=== PATIENT | female | born 1975 | race Caucasian/White ===

== ENCOUNTER 2018-07-05 10:53 | Outpatient (CLI) | payer MEDICARE, MEDICAID, SELFPAY ==
--- NOTE | 2018-07-05 10:49 | DI.REPORT_ITS ---
SYMPTOM/DIAGNOSIS: F/U DEBRIDEMENT LEFT ELBOW: Two views. Comparison 05/26/18 There is now a nondisplaced longitudinally oriented fracture of the medial epicondyle. Post traumatic or post surgical changes are again seen at the proximal ulna. Secondary degenerative changes are seen at the elbow. Skin sam are present in the soft tissues medially. IMPRESSION: Nondisplaced fracture involving the medial epicondyle.
== END 2018-07-05 10:54 ==
PROVIDERS: PCP Internal Medicine; Visit Provider Orthopaedic Surgery
DX: S57 Crushing injury of elbow and forearm (principal); S52.045D Nondisplaced fracture of coronoid process of left ulna, subsequent encounter for closed fracture with routine healing; W23.0XXD Caught, crushed, jammed, or pinched between moving objects, subsequent encounter; M19.122 Post-traumatic osteoarthritis, left elbow
CPT/HCPCS: 73070

== ENCOUNTER 2018-07-26 10:07 | Outpatient (CLI) | payer MEDICARE, MEDICAID, SELFPAY ==
--- NOTE | 2018-07-26 10:05 | DI.REPORT_ITS ---
SYMPTOMS/DIAGNOSIS: INJURY POST SURGERY LEFT ELBOW: Three views. Comparison is 07/05/18. There is again seen a fracture involving the medial epicondyle. The fracture has shown increased displacement compared to the prior examination. There is now approximately 4 mm of displacement of the fracture since 07/05/18. 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 Degenerative changes are seen in the elbow. Soft tissue swelling is present in the medial elbow. IMPRESSION: Interval displacement of the fracture involving the medial epicondyle since 07/05/18.
== END 2018-07-26 10:08 ==
PROVIDERS: PCP Internal Medicine; Visit Provider Physician Assistant Surgical
DX: S57 Crushing injury of elbow and forearm (principal); S52.045D Nondisplaced fracture of coronoid process of left ulna, subsequent encounter for closed fracture with routine healing; M24.022 Loose body in left elbow; M77.8 Other enthesopathies, not elsewhere classified; W23.0XXD Caught, crushed, jammed, or pinched between moving objects, subsequent encounter
CPT/HCPCS: 73080

== ENCOUNTER → 2018-08-18 10:54 | Outpatient (BNVA) | payer MEDICARE, MEDICAID, SELFPAY | PROVIDERS: Visit Provider Orthopaedic Surgery | DX: S57 Crushing injury of elbow and forearm (principal); S52.045D Nondisplaced fracture of coronoid process of left ulna, subsequent encounter for closed fracture with routine healing; M24.022 Loose body in left elbow; W23.0XXD Caught, crushed, jammed, or pinched between moving objects, subsequent encounter ==

== ENCOUNTER 2018-08-19 13:57 | Outpatient (CLI) | payer MEDICARE, MEDICAID, SELFPAY ==
--- NOTE | 2018-08-18 11:05 | DI.RAD_ITS ---
SYMPTOMS/DIAGNOSIS: F/U OSTEOTOMY OF MEDIAL HUMERAL EPICONDYLE LEFT ELBOW: Comparison is made with the previous study of 07/26/18 and again noted is a displaced fracture of the medial epicondyle and degenerative changes involving the ulnar trochlear joint. No interval change is apparent.
== END 2018-08-19 14:17 ==
PROVIDERS: PCP Internal Medicine; Visit Provider Orthopaedic Surgery
DX: S52.045D Nondisplaced fracture of coronoid process of left ulna, subsequent encounter for closed fracture with routine healing (principal)
CPT/HCPCS: 73080

== ENCOUNTER 2018-09-29 10:12 | Outpatient (CLI) | payer MEDICARE, MEDICAID, SELFPAY ==
--- NOTE | 2018-09-29 09:22 | DI.RAD_ITS ---
SYMPTOM/DIAGNOSIS: FU NON UNION LEFT ELBOW: When compared with the previous study of 08/18 and 07/26/18, again noted are the post traumatic changes involving the medial epicondyle of the distal humerus and coronoid process of the ulna consistent with old trauma. There is evident non union. There are at least two fracture fragments involving the lateral epicondyle. When compared with the 07/26 and 08/18/18 examinations, there has been no significant interval change.
== END 2018-09-29 10:32 ==
PROVIDERS: PCP Internal Medicine; Visit Provider Orthopaedic Surgery
DX: S52.04 Fracture of coronoid process of ulna (principal); X58.XXXD Exposure to other specified factors, subsequent encounter
CPT/HCPCS: 99211; 99213; 73070

== ENCOUNTER 2018-10-06 12:55 | Outpatient (CLI) | payer MEDICARE, MEDICAID, SELFPAY ==
--- NOTE | 2018-10-06 13:15 | HPE_ITS ---
Assessment and Plan (1) History of elbow surgery: Current visit: Yes Status: Acute Plan: Discussed surgery including surgical technique, pertinent anatomy, recovery, benefits and risks including but not limited to risk of infection, blood clot, damage to soft tissue/nerves/blood vessels with patient and her in detail. Patient gives verbal understanding of risks and elects to proceed with scheduling surgery. Patient had opportunity to have questions answered to her satisfaction. Patient will contact office if issues arise. Patient will be scheduled for nonunion fracture of medial epicondyle of the left humerus with cannulated screw or excision of the fragment with Dr. Lauren on October 10, 2018. 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 Bee is a 42-year-old female who presents for preoperative visit for scheduled operation to fix left humerus medial epicondyle non-union fracture with cannulated screw or excision of fragment with Dr. Lauren on October 10, 2018. Patient is right-hand dominant and suffered injury to her left arm. State she was changing her oil in her car when the car crum fell landing directly on her forearm and elbow. Patient did not seek medical attention at time of injury and her soreness resolved. However, she continued to have pain along her elbow with lifting objects such as a milk jug and when she pulled her 's wheelchair. Patient saw Dr. Lauren for these complaints and underwent left elbow arthrotomy with removal of loose body and resection of a portion of malunited coracoid process on 06/28/2018. After surgery patient disregarded her postoperative instructions to not lift with her left hand. Reports she went to take a set of 4 plates out of a tall cabinet when she had extreme left elbow pain and dropped the plates. Following that time patient was seen in the orthopedic office for her post-operative visit at which time it was revealed she had developed a nonunion of the fracture. Patient has continued to have pain at the medial aspect of her elbow over the medial epicondyle as well as an occasional snapping and popping sensation that also elicits pain. Patient reports she occasionally has pain if she does not move her elbow for extended amount of time, however the majority of her pain is aggravated with lifting and pushing motions. Patient is on Percocet for chronic low back pain which is managed by her PCP. Patient denies any feelings of numbness or tingling. Patient denies any further injury. X-rays from August 18, 2018 -as per Dr. Lauren's note state medial epicondyle is medially displaced with a 4-5 mm gap between the condyle humerus. Fragment is also rotated counterclockwise about 45 degrees on the AP view. Pertinent Surgical Information Patient has history of asthma since youth. Reports last hospitalization for asthma exacerbation was greater than 11 years ago. Patient reports normally has asthma symptoms in the summer while walking with her daughter. Symptoms improve when patient uses her inhalers. Patient states last time she used her inhaler was approximately 6-7 months ago. Denies any GORDON, wheezing, shortness of breath, orthopnea, PND or cough. She has history of occasional episodic diarrhea. States she was diagnosed with diverticulosis on colonoscopy several years ago at [facility]. States she is currently being assessed for medication to control diarrhea. Denies any recent change in diarrhea symptoms, melena or hematochezia. Patient has partial bottom and full upper dentures which she wears periodically. States that she is unable to wear regularly due to improper fit. Denies past medical history of: stroke, cardiac issues, angina, COPD, sleep apnea, renal issues, liver issues, hepatitis, ulcers, hyperlipidemia, bleeding disorders, seizures, anxiety, depression, diabetes, autoimmune disorders, thyroid issues Denies prior complications from surgery or anesthesia. Review of Systems Constitutional Denies fever(s), Denies frequent falls and Reports headache(s) (Chronic migraines) Eyes Denies change in vision ENT Denies otalgia, Reports headache(s) (Chronic migraines), Denies epistaxis, Denies nasal congestion, Denies nasal discharge and Denies sore throat Cardiovascular Denies chest pain, Denies rapid heart rate, Denies irregular heart rhythm, Denies dyspnea, Denies dyspnea on exertion and Denies slow heart rate Respiratory Denies cough (Denies productive cough), Denies dyspnea, Denies dyspnea on exertion and Denies wheezing Gastrointestinal Denies abdominal pain, Denies melena, Denies hematochezia, Denies constipation, Reports diarrhea (Reports frequent episodes of diarrhea for the past several years; was diagnosed with diverticulosis several years ago at [facility] ), Denies nausea and Denies vomiting Genitourinary Denies hematuria, Denies dysuria and Denies urinary urgency Musculoskeletal Reports as per HPI, Denies numbness and Denies tingling Neurologic Denies frequent falls, Reports headache(s) (Chronic migraines), Denies numbness and Denies tingling Psychiatric Denies anxiety and Denies depression Allergic/Immunologic Denies wheezing PFSH Family History Mother Heart disease Hypertension Diabetes Asthma Brain tumor Father Brain tumor Sister Ovarian cancer Brother Diabetes Hypertension Heart disease Medical History 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 with nonunion (Acute) Chronic low back pain (Chronic) Diverticulosis (Chronic) Chronic migraine (Chronic) GERD (gastroesophageal reflux disease) (Chronic) Asthma (Chronic) Hypertension (Chronic) Social History marital status: current occupational status: disabled Smoking/Tobacco Use Status: Never alcohol intake: never substance use type: does not use Surgical History Status post knee surgery (Acute) Status post appendectomy (Acute) Status post cholecystectomy (Acute) Status post hysterectomy (Acute) History of elbow surgery (Acute) Meds Home Medications Medication Instructions Recorded Confirmed Type Levocetirizine Dihydrochloride 5 mg PO HS tab-cap 05/26/18 09/29/18 History [Xyzal] budesonide-formoterol [Symbicort 2 puff INHALATION BID PRN inhaler 05/26/1812/16 History 80/4.5 Mcg Inhaler] cholecalciferol (vitamin D3) 2,000 unit PO HS 05/26/18 09/29/18 History [Vitamin D3] hydrochlorothiazide 25 mg PO HS tab-cap 05/26/18 09/29/18 History lisinopril 10 mg PO HS tab-cap 05/26/18 09/29/18 History meclizine 25 mg PO TID PRN tab-cap 05/26/18 09/29/18 History montelukast [Singulair] 10 mg PO DAILY PRN tab-cap 05/26/18 09/29/18 History naproxen [Naprosyn] 500 mg PO BID PRN tab-cap 05/26/18 09/29/18 History oxycodone-acetaminophen [Percocet 1 tab-cap PO Q4H PRN tab-cap 05/26/18 History 7.5-325 Mg Tablet] pantoprazole [Protonix] 40 mg PO BID packet 05/26/18 09/29/18 History sumatriptan succinate [Imitrex] 50 mg PO DAILY PRN 05/26/18 09/29/18 History topiramate [Topamax] 50 mg PO HS 05/26/18 09/29/18 History albuterol sulfate [Proair Hfa] 2 puff INHALATION Q4H PRN PRN 06/22/18 09/29/18 History ibuprofen 800 mg PO TID #60 tab 06/27/18 09/29/18 Rx Allergies Allergy/AdvReac Type Severity Reaction Status Date / Time iodine Allergy Severe Anaphylaxsi Verified 10/06/18 13:59 s aspirin Allergy Intermediate Skin Rash Verified 10/06/18 13:59 bupropion [From Wellbutrin] Allergy Intermediate Nausea Verified 10/06/18 13:59 latex Allergy skin Verified 10/06/18 13:59 breaks out metronidazole [From Flagyl] Allergy Anaphylaxsi Verified 10/06/18 13:59 s shellfish derived Allergy Anaphylaxsi Verified 10/06/18 13:59 s Exam Const General: cooperative and no acute distress [facility] Head: normal to inspection, normocephalic and atraumatic Ears: external ears normal General nose exam: external nose normal and no nasal discharge Face and sinus: face symmetric Mouth: oral mucosae normal, lip normal, tongue normal and moist mucous membranes Throat: posterior oropharynx normal Eyes General: appearance normal, both eyes and all related structures Pupils: PERRL EOM: EOM intact bilaterally Neck Neck: trachea midline Carotids: normal carotid upstroke Lymphatic: no lymphadenopathy noted Resp Effort & Inspection: normal respiratory effort and able to speak in complete sentences Auscultation: clear to auscultation bilaterally, no rales, no rhonchi and no wheezes Cardio Heart Sounds: S1 normal, S2 normal, no murmurs, no rubs and no other Pulses: radial pulses present bilaterally GI Palpation: soft, no hepatosplenomegaly and nontender Auscultation: normal bowel sounds Skin General skin exam: no rashes or lesions noted Extrem Other: Left elbow examination: Skin is intact with well-healed surgical incision noted, no signs of edema, ecchymosis or erythema noted. Tenderness to palpation over the medial epicondyle and grimace elicited with palpation. Active range of motion is short of full extension by approximately 5 degrees and has flexion of 120 degrees. Patient is approximately 3 inches above the collarbone on the left side compared to the right where she is 1 inch above her collarbone with elbow flexion. Patient reports pain at end of range of motion in flexion and extension.
== END 2018-10-06 13:15 ==
PROVIDERS: PCP Internal Medicine; Visit Provider Orthopaedic Surgery
DX: Z01.818 Encounter for other preprocedural examination (principal)
CPT/HCPCS: NC

== ENCOUNTER 2018-10-10 07:47 | Day surgery (SDC) | payer MEDICARE, MEDICAID, SELFPAY ==
[2018-10-10] VITALS (7 sets, daily range): BP systolic 132–167; BP diastolic 75–105; PULSE 64–115; RESP 12–18; TEMP 36.2–37.1; O2SAT 93–99
[2018-10-10] MEDS: Lactated Ringers 1,000 ML 80 ML IV (08:15)
--- NOTE | 2018-10-10 09:06 | DI.RAD_ITS ---
SYMPTOM/DIAGNOSIS: ORIF ELBOW LEFT ELBOW IN O.R.: Fluoroscopy Time: 13.5sec, 0.39mgy Fluoroscopy was utilized by Dr. Lauren during the reduction and internal fixation of a distal humeral fracture. Please refer to the procedure report for complete details.
--- NOTE | 2018-10-10 10:58 | W.PM.DSUDISC ---
Discharge Plan Disposition Patient Disposition: HOME Condition: Good Discharge Details Reason For Visit: repair non-union fx medial epicondyle Attending Provider: Rich Lauren Primary Care Provider: Clifford Gavin [place] Meds and New Rx's Prescriptions: New hydrocodone-acetaminophen 5-325 mg tablet 1 tab PO Q6H PRN (Reason: pain) Qty: 14 RF: 0 Continue pantoprazole [Protonix] [address] for susp in packet 40 mg PO BID RF: 0 sumatriptan succinate [Imitrex] 50 MG tablet 50 mg PO DAILY PRNRF: 0 meclizine 25 MG tablet 25 mg PO TID PRNRF: 0 lisinopril 10 MG tablet 10 mg PO HS RF: 0 montelukast [Singulair] 10 MG tablet 10 mg PO HS RF: 0 hydrochlorothiazide 25 MG tablet 25 mg PO HS RF: 0 naproxen [Naprosyn] 500 MG tablet 500 mg PO BID PRNRF: 0 topiramate [Topamax] 50 MG tablet 50 mg PO HS RF: 0 budesonide-formoterol [Symbicort] 10.2 GM HFA aerosol inhaler 2 puff Inhalation BID PRNRF: 0 cholecalciferol (vitamin D3) [Vitamin D3] 2,000 UNIT capsule 2,000 unit PO HS RF: 0 Levocetirizine Dihydrochloride [Xyzal] 5 MG tablet 5 mg PO HS RF: 0 albuterol sulfate [ProAir HFA] 200 PUFF/INH HFA aerosol inhaler 2 puff Inhalation Q4H PRN PRNRF: 0 ibuprofen 800 MG tablet 800 mg PO TID Qty: 60 RF: 0 Discontinued oxycodone-acetaminophen [Percocet] 1 EACH tablet 1 tab-cap PO Q4H PRN RF: 0 Discharge Instructions Additional Instructions: Don't lift anything more than 1 pound with L hand. Keep dressings and splint dry and intact until return. Return to 's office in 2-3 weeks. Take hydrocodone for pain that is not relieved by ibuprofen or tylenol. 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
[2018-10-10] MEDS: oxyCODONE-CR 10 MG TABCR PO (12:25)
--- NOTE | 2018-10-10 16:07 | ROE_ITS ---
DATE OF PROCEDURE: October 10, 2018 PREOPERATIVE DIAGNOSIS: Nonunion fracture of medial epicondyle left distal humerus. POSTOPERATIVE DIAGNOSIS: Same. PROCEDURE: Open reduction and internal fixation of nonunion fracture left medial epicondyle using 3. 5 cannulated screw and washer. ANESTHESIA: General. SURGEON: Rich Lauren M.D. [employer] ARCHITECT: Sudha Hogan INDICATIONS: This is a 42-year-old white female who had undergone an arthrotomy of her left elbow wi th removal of osteophytes and loose bodies several months ago. The surgical approach required an ost eotomy of the medial epicondyle. At the conclusion of the procedure the osteotomy was fixated with s utures to the surrounding fascia. The patient was advised postop not to do any lifting with the left elbow and concentrate on range of motion. The patient inadvertently picked up a heavy bag and she f elt a pop in her elbow. Follow-up x-rays confirmed that the medial epicondyle was now displaced from its postop position. I decided to treat the displaced osteotomy with benign neglect and observation . Although the patient's elbow motion was restored following removal of the osteophytes, she continu ed to complain of medial pain over the medial epicondyle. Serial x-rays confirmed that the medial ep icondyle was not healing and was displaced. I recommended repair of the nonunion site with internal fixation with a cannulated screw. The risks and complications of the procedure and expected postoper ative course were discussed with the patient in detail preoperatively. PROCEDURE: The patient was taken to the operating room on 10/10/18. She was placed supine on the op erating table and a general anesthetic was administered. A proximal tourniquet was applied to the le ft upper arm and then the left upper extremity was prepped from fingers to tourniquet and draped free in the usual sterile fashion. I utilized her old scar to make the incision. I didn't utilize the entire length of the scar. The i ncision was carried down through the fascia. I could palpate the gross motion of the medial epicondy le fracture, indicating that it was a nonunion and there was actually no good fibrous union either. I incised on the volar side of the nonunion site to mobilize the medial epicondyl fracture fragment. The ulnar nerve was identified in the cubital tunnel and was freed from the cubital tunnel and retra cted with a vessel loop around the nerve to protect it during the surgery. I then used a rongeur and curette to clean out the site of the osteotomy of fibrous tissue. I then fixed the medial epicondyl e with two guide pins from the 3.5 cannulated screw set. Pinning was done under C-arm image intensif ication guidance. I then replaced one of the guide pins with a guide pin that was directed through t he center of the medial epicondyle fracture fragment and into the distal humerus. It was measured an d a 30 mm partially-threaded 3.5 cancellous screw with washer was then placed over the guide pin afte r reaming over the guide pin with a cannulated 2.7 reamer. I then tightened the screw and washer mick n until there was excellent contact between the osteotomy fragment and the distal humerus. Reduction of the fracture and good bone contact was confirmed with the C-arm image intensifier in AP and later al views. I then removed both guide pins. I supplemented the internal fixation of the screw with roman ture of the muscular fascia from the medial epicondyle to the surrounding fascia with interrupted fig [id number] sutures of #1 Vicryl suture material. I also placed a drill hole through the medial epi condyle fracture fragment and then passed the #1 Vicryl suture through the drill hole and through the fascia for additional fixation. At conclusion of the procedure range of motion of the elbow did not cause any visible motion of the f racture fragment. The wound margins were infiltrated with 0.5% Marcaine with an epinephrine solution . The vessel loop was removed from the ulnar nerve. There was no evidence that the ulnar nerve was rubbing over the cannulated screw. It was buried into the fascia. The subcu and deep fascia were th en infiltrated with 0.5% Marcaine with an epinephrine solution. The wound was irrigated with Betadin e and saline solution. Hemostasis was obtained with electrocautery. The subcu was approximated with interrupted #2-0 Vicryl sutures. The skin edges were approximated with interrupted #4-0 nylon sutur es. Sterile dressings were applied and then a long-arm posterior fiberglass splint was applied with a 6-inch Abhi bandage to keep her from moving her elbow and stressing the repair of the medial epicond yle nonunion. A sling was applied over the splint. The tourniquet was released; there was no breakt hrough bleeding to the dressings. Patient's anesthesia was reversed without complications and she wa s discharged to the recovery room in good condition. The patient was later discharged home from the Day Surgery Unit when fully recovered from her general anesthesia. She was given instructions to not attempt to lift anything more than one pound with her left hand. She is to keep her dressings and splint intact and dry until she follows up in my office within the next 2 to 3 weeks. She was given a prescription for pain of Hydrocodone with APAP 5/325 one tablet every six hours as needed for pain that is not relieved by Tylenol or ibuprofen.
== END 2018-10-10 13:03 | disposition home or self-care (01) ==
PROVIDERS: PCP Internal Medicine; Visit Provider Orthopaedic Surgery
PROC: (CPT 24420; principal; 2018-10-10 09:00)
DX: S42.442A Displaced fracture (avulsion) of medial epicondyle of left humerus, initial encounter for closed fracture (principal); X50.0XXA Overexertion from strenuous movement or load, initial encounter
CPT/HCPCS: 24430; 73080; J0690; J1100; J1885; J2250; J2405; L3650

== ENCOUNTER 2018-11-02 10:00 | Outpatient (CLI) | payer MEDICARE, MEDICAID, SELFPAY ==
--- NOTE | 2018-11-02 09:52 | DI.RAD_ITS ---
SYMPTOM/DIAGNOSIS: INJURY LEFT ELBOW: Comparison is made with intraoperative images dated 09 Oct 2018. A screw is seen through the medial epicondyle. No fracture, deformity of the coronoid process is again noted. There are degenerative changes at the elbow joint.
== END 2018-11-02 10:20 ==
PROVIDERS: PCP Internal Medicine; Referring Provider Internal Medicine; Visit Provider Orthopaedic Surgery
DX: S42.442D Displaced fracture (avulsion) of medial epicondyle of left humerus, subsequent encounter for fracture with routine healing (principal); M19.022 Primary osteoarthritis, left elbow; I10 Essential (primary) hypertension; X50.0XXD Overexertion from strenuous movement or load, subsequent encounter
CPT/HCPCS: 73070

== ENCOUNTER 2018-12-14 10:55 | Outpatient (CLI) | payer MEDICARE, MEDICAID, SELFPAY ==
--- NOTE | 2018-12-14 10:51 | DI.RAD_ITS ---
SYMPTOMS/DIAGNOSIS: F/U ORIF LEFT ELBOW: Comparison is made with 5Dec18. The screw is again seen at the medial malleolus. The findings appear stable. Deformity of the coronoid process of the ulna and spurring of the proximal radius are again noted.
== END 2018-12-14 11:15 ==
PROVIDERS: PCP Internal Medicine; Referring Provider Internal Medicine; Visit Provider Orthopaedic Surgery
DX: S42.442 Displaced fracture (avulsion) of medial epicondyle of left humerus (principal); X58.XXXD Exposure to other specified factors, subsequent encounter; I10 Essential (primary) hypertension
CPT/HCPCS: 73070

== ENCOUNTER 2019-01-04 11:25 | Outpatient (CLI) | payer MEDICARE, MEDICAID, SELFPAY ==
--- NOTE | 2019-01-04 11:13 | DI.RAD_ITS ---
SYMPTOMS/DIAGNOSIS: F/U NONUNION; PAIN LEFT ELBOW: Comparison is made with November,. A screw is again noted through the medial epicondyle for fracture fixation. There is increased space between the fracture fragment and the medial aspect of the distal humerus, as well as increased space between the head of the screw and the medial epicondyle fracture fragment compared with the previous exam. A joint effusion is visible. Stable deformities of the proximal radius and coronoid process are again noted. LEFT RING FINGER: There is a fracture at the lateral tuft of the distal phalanx of the ring finger, which is slightly displaced. There are no prior comparison exams. IMPRESSION: Tuft fracture.
== END 2019-01-04 11:45 ==
PROVIDERS: PCP Internal Medicine; Referring Provider Internal Medicine; Visit Provider Orthopaedic Surgery
DX: S42.442 Displaced fracture (avulsion) of medial epicondyle of left humerus (principal); S62.635A Displaced fracture of distal phalanx of left ring finger, initial encounter for closed fracture; S67.192A Crushing injury of right middle finger, initial encounter; W23.0XXA Caught, crushed, jammed, or pinched between moving objects, initial encounter
CPT/HCPCS: 99214; 99241; 73080; 73140

== ENCOUNTER 2019-03-01 11:23 | Outpatient (CLI) | payer MEDICARE, MEDICAID, SELFPAY ==
--- NOTE | 2019-03-01 11:18 | DI.RAD_ITS ---
SYMPTOMS/DIAGNOSIS: F/U LEFT ELBOW: Again noted is a fracture of the medial epicondyle of the left humerus. There has been no interval change in the status of the fracture involving the medial epicondyle of the humerus or fixation screw in place.
== END 2019-03-01 11:43 ==
PROVIDERS: PCP Internal Medicine; Referring Provider Internal Medicine; Visit Provider Orthopaedic Surgery
DX: S42.442D Displaced fracture (avulsion) of medial epicondyle of left humerus, subsequent encounter for fracture with routine healing (principal); X58.XXXD Exposure to other specified factors, subsequent encounter; I10 Essential (primary) hypertension
CPT/HCPCS: 99212; 73080

== ENCOUNTER 2019-04-19 10:58 | Outpatient (CLI) | payer MEDICARE, MEDICAID, SELFPAY ==
--- NOTE | 2019-04-19 10:51 | DI.RAD_ITS ---
SYMPTOM/DIAGNOSIS: F/U LEFT ELBOW: Comparison is made with 03/01/19. A screw is noted through the medial epicondyle. Fracture fragments are again noted from the medial epicondyle which appears unchanged. There is also deformity of the coronoid process of the ulna relating to previous fractures. There is slight deformity of the radial head and degenerative changes. The findings do not appear significantly changed.
== END 2019-04-19 11:18 ==
PROVIDERS: PCP Internal Medicine; Referring Provider Internal Medicine; Visit Provider Orthopaedic Surgery
DX: S42.442 Displaced fracture (avulsion) of medial epicondyle of left humerus (principal); X58.XXXA Exposure to other specified factors, initial encounter; I10 Essential (primary) hypertension
CPT/HCPCS: 99213; 73080

== ENCOUNTER 2019-04-28 10:17 | Outpatient (CLI) | payer MEDICARE, MEDICAID, SELFPAY ==
--- NOTE | 2019-04-28 11:05 | W.PREOPHP ---
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 The details of surgery were discussed with patient as well as risks and pertinent anatomy. All questions were answered. History of Present Illness Chief Complaint: Left elbow pain Narrative: Radha is somewhat of a poor historian, but does come in today for a preop visit for her hardware removal of the left elbow. 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 She then had surgery by Dr. Lauren with an ORIF of the nonunion of the left elbow at the medial epicondyle. Shortly after that, she had another surgery for debridement of a bony prominence in the left elbow. She states that the fracture has since healed, and the screw is prominent causing her pain. She states that whenever she tries to rest her elbow on any sort of surface she gets excruciating left elbow pain. X-rays taken show bony fragments around the medial epicondyle of the left elbow with a screw fixation. Since the hardware has become painful, Dr. Lauren does suggest removal of the screw, and she is anxious to proceed with this surgery. Pertinent Surgical Information Radha states that she has asthma that is really only active during the summer months especially when paying her mowing is taking place. This is usually the only time she needs to take her inhalers. She also states that she is a borderline diabetic but she controls with diet. She states that she is just finishing up a course of antibiotics for diverticulitis, and her last dose is tomorrow, 04/29/2019. She is also on chronic pain medication, which sounds like Percocet 10?325 for chronic back pain. Patient denies history of hypertension, CVA, [place], angina, COPD, renal or liver disorders, hepatitis, bleeding disorders, immune or thyroid disorders. No complications from anesthesia. 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 (Acute) Chronic low back pain (Chronic) Diverticulosis (Chronic) Chronic migraine (Chronic) GERD (gastroesophageal reflux disease) (Chronic) Asthma (Chronic) Hypertension (Chronic) Environmental allergies (Acute) Surgical History Status post knee surgery (Acute) Status post appendectomy (Acute) Status post cholecystectomy (Acute) Status post hysterectomy (Acute) History of elbow surgery (Acute) Family History Mother Heart disease Hypertension Diabetes Asthma Brain tumor Father Brain tumor Sister Ovarian cancer Brother Diabetes Hypertension Heart disease Social History Smoking/Tobacco Use Status: Never Alcohol Intake: never Drug use: Never Substance use type: does not use Do you feel safe at home: Yes Do you feel safe in your relationship?: Yes Meds Home Medications Medication Instructions Recorded Confirmed Type Levocetirizine Dihydrochloride 5 mg PO HS tab-cap 05/26/18 04/28/19 History [Xyzal] Protonix 40 mg PO BID packet 05/26/18 04/28/19 History Symbicort 2 puff INHALATION BID PRN inhaler 05/26/18 04/28/19 History cholecalciferol (vitamin D3) 2,000 unit PO HS 05/26/18 04/28/19 History [Vitamin D3] hydrochlorothiazide 25 mg PO HS tab-cap 05/26/18 04/28/19 History lisinopril 10 mg PO HS tab-cap 05/26/18 04/28/19 History meclizine 25 mg PO TID PRN tab-cap 05/26/18 04/28/19 History montelukast [Singulair] 10 mg PO HS tab-cap 05/26/18 04/28/19 History naproxen [Naprosyn] 500 mg PO BID PRN tab-cap 05/26/18 04/28/19 History sumatriptan succinate [Imitrex] 50 mg PO DAILY PRN 05/26/18 04/28/19 History topiramate [Topamax] 50 mg PO HS 05/26/18 04/28/19 History albuterol sulfate [ProAir HFA] 2 puff INHALATION Q4H PRN PRN 06/22/18 04/28/19 History ibuprofen 800 mg PO TID PRN 04/28/19 04/28/19 History oxycodone-acetaminophen [Percocet] 1 tab PO QID PRN 04/28/19 04/28/19 History Allergies Allergy/AdvReac Type Severity Reaction Status Date / Time iodine Allergy Severe Anaphylaxsi Verified 04/28/19 10:28 s aspirin Allergy Intermediate Skin Rash Verified 04/28/19 10:28 latex Allergy skin Verified 04/28/19 10:28 breaks out metronidazole [From Flagyl] Allergy Anaphylaxsi Verified 04/28/19 10:28 s shellfish derived Allergy Anaphylaxsi Verified 04/28/19 10:28 s bupropion [From Wellbutrin] AdvReac Intermediate Nausea Verified 04/28/19 10:28 Exam HENNH Head: normocephalic and atraumatic General nose exam: no nasal discharge Throat: uvula midline and no uvular edema Other: soft palate rises symmetrically, no erythema Eyes Conjunctivae: conjunctivae normal Sclera: sclerae normal Pupils: PERRL Resp Effort & Inspection: normal respiratory effort Auscultation: clear to auscultation bilaterally and no wheezes Cardio Rate: regular rate Rhythm: regular rhythm Heart Sounds: S1 normal, S2 normal and no murmurs GI Palpation: soft, no hepatosplenomegaly and nontender Auscultation: normal bowel sounds
--- NOTE | 2019-04-28 11:16 | HPE_ITS ---
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 The details of surgery were discussed with patient as well as risks and pertinent anatomy. All questions were answered. History of Present Illness Chief Complaint: Left elbow pain Narrative: Radha is somewhat of a poor historian, but does come in today for a preop visit for her hardware removal of the left elbow. 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 She then had surgery by Dr. Lauren with an ORIF of the nonunion of the left elbow at the medial epicondyle. Shortly after that, she had another surgery for debridement of a bony prominence in the left elbow. She states that the fracture has since healed, and the screw is prominent causing her pain. She states that whenever she tries to rest her elbow on any sort of surface she gets excruciating left elbow pain. X-rays taken show bony fragments around the medial epicondyle of the left elbow with a screw fixation. Since the hardware has become painful, Dr. Lauren does suggest removal of the screw, and she is anxious to proceed with this surgery. Pertinent Surgical Information Radha states that she has asthma that is really only active during the summer months especially when paying her mowing is taking place. This is usually the only time she needs to take her inhalers. She also states that she is a border line diabetic but she controls with diet. She states that she is just finishing up a course of antibiotics for diverticulitis, and her last dose is tomorrow, 04/29/2019. She is also on chronic pain medication, which sounds like Percocet 10?325 for chronic back pain. Patient denies history of hypertension, CVA, [place], angina, COPD, renal or liver disorders, hepatitis, bleeding disorders, immune or thyroid disorders. No complications from anesthesia. 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 (Acute) Chronic low back pain (Chronic) Diverticulosis (Chronic) Chronic migraine (Chronic) GERD (gastroesophageal reflux disease) (Chronic) Asthma (Chronic) Hypertension (Chronic) Environmental allergies (Acute) Surgical History Status post knee surgery (Acute) Status post appendectomy (Acute) Status post cholecystectomy (Acute) Status post hysterectomy (Acute) History of elbow surgery (Acute) Family History Mother Heart disease Hypertension Diabetes Asthma Brain tumor Father Brain tumor Sister Ovarian cancer Brother Diabetes Hypertension Heart disease Social History Smoking/Tobacco Use Status: Never Alcohol Intake: never Drug use: Never Substance use type: does not use Do you feel safe at home: Yes Do you feel safe in your relationship?: Yes Meds Home Medications Medication Instructions Recorded Confirmed Type Levocetirizine Dihydrochloride 5 mg PO HS tab-cap 05/26/18 04/28/19 History [Xyzal] Protonix 40 mg PO BID packet 05/26/18 04/28/19 History Symbicort 2 puff INHALATION BID PRN inhaler 05/26/18 04/28/19 History cholecalciferol (vitamin D3) 2,000 unit PO HS 05/26/18 04/28/19 History [Vitamin D3] hydrochlorothiazide 25 mg PO HS tab-cap 05/26/18 04/28/19 History lisinopril 10 mg PO HS tab-cap 05/26/18 04/28/19 History meclizine 25 mg PO TID PRN tab-cap 05/26/18 04/28/19 History montelukast [Singulair] 10 mg PO HS tab-cap 05/26/18 04/28/19 History naproxen [Naprosyn] 500 mg PO BID PRN tab-cap 05/26/18 04/28/19 History sumatriptan succinate [Imitrex] 50 mg PO DAILY PRN 05/26/18 04/28/19 History topiramate [Topamax] 50 mg PO HS 05/26/18 04/28/19 History albuterol sulfate [ProAir HFA] 2 puff INHALATION Q4H PRN PRN 06/22/18 04/28/19 History ibuprofen 800 mg PO TID PRN 04/28/19 04/28/19 History oxycodone-acetaminophen [Percocet] 1 tab PO QID PRN 04/28/19 04/28/19 History Allergies Allergy/AdvReac Type Severity Reaction Status Date / Time iodine Allergy Severe Anaphylaxsi Verified 04/28/19 10:28 s aspirin Allergy Intermediate Skin Rash Verified 04/28/19 10:28 latex Allergy skin Verified 04/28/19 10:28 breaks out metronidazole [From Flagyl] Allergy Anaphylaxsi Verified 04/28/19 10:28 s shellfish derived Allergy Anaphylaxsi Verified 04/28/19 10:28 s bupropion [From Wellbutrin] AdvReac Intermediate Nausea Verified 04/28/19 10:28 Exam HENIA Head: normocephalic and atraumatic General nose exam: no nasal discharge Throat: uvula midline and no uvular edema Other: soft palate rises symmetrically, no erythema Eyes Conjunctivae: conjunctivae normal Sclera: sclerae normal Pupils: PERRL Resp Effort & Inspection: normal respiratory effort Auscultation: clear to auscultation bilaterally and no wheezes Cardio Rate: regular rate Rhythm: regular rhythm Heart Sounds: S1 normal, S2 normal and no murmurs GI Palpation: soft, no hepatosplenomegaly and nontender Auscultation: normal bowel sounds
== END 2019-04-28 10:37 ==
PROVIDERS: PCP Internal Medicine; Visit Provider Orthopaedic Surgery
DX: T84.84XA Pain due to internal orthopedic prosthetic devices, implants and grafts, initial encounter (principal); Z01.818 Encounter for other preprocedural examination
CPT/HCPCS: NC

== ENCOUNTER 2019-05-01 10:04 | Day surgery (SDC) | payer MEDICARE, MEDICAID, SELFPAY ==
[2019-05-01] VITALS (8 sets, daily range): BP systolic 77–139; BP diastolic 38–94; PULSE 53–74; RESP 11–18; TEMP 36.7–36.8; O2SAT 90–100
[2019-05-01] MEDS: Lactated Ringers 1,000 ML 80 ML IV (10:35)
[2019-05-01] MEDS: ceFAZolin 1 GM/50 ML BAG IVPB (12:54)
--- NOTE | 2019-05-01 13:24 | W.PM.DSUDISC ---
Discharge Plan Disposition Patient Disposition: HOME Condition: Good Discharge Details Reason For Visit: Remove painful screw L elbow Attending Provider: Rich Lauren Primary Care Provider: Clifford Gavin [place] Meds and New Rx's Prescriptions: No Action Protonix [address] bañuelos susp in packet 40 mg PO BID RF: 0 sumatriptan succinate [Imitrex] 50 MG tablet 50 mg PO DAILY PRNRF: 0 meclizine 25 MG tablet 25 mg PO TID PRNRF: 0 lisinopril 10 MG tablet 10 mg PO HS RF: 0 montelukast [Singulair] 10 MG tablet 10 mg PO HS RF: 0 hydrochlorothiazide 25 MG tablet 25 mg PO HS RF: 0 naproxen [Naprosyn] 500 MG tablet 500 mg PO BID PRNRF: 0 topiramate [Topamax] 50 MG tablet 50 mg PO HS RF: 0 Symbicort 10.2 GM HFA aerosol inhaler 2 puff Inhalation BID PRNRF: 0 cholecalciferol (vitamin D3) [Vitamin D3] 2,000 UNIT capsule 2,000 unit PO HS RF: 0 Levocetirizine Dihydrochloride [Xyzal] 5 MG tablet 5 mg PO HS RF: 0 oxycodone-acetaminophen [Percocet] 10-325 mg Tablet 1 tab PO QID PRNRF: 0 ibuprofen 800 MG tablet 800 mg PO TID PRNRF: 0 albuterol sulfate [ProAir HFA] 200 PUFF/INH HFA aerosol inhaler 2 puff Inhalation Q4H PRN PRNRF: 0 Discharge Instructions Additional Instructions: Take ibuprofen for pain , if needed. Keep dressings dry for 72 hours. May remove dressings, shower, and get incision wet after 72 hours. May leave incison uncovered when it is dry and sealed. Loosen fuentes bandage around L elbow if your L hand swells. Use L arm as much as your discomfort allows. Follow up with in 2 weeks. Referrals: Rich Lauren MD [ [facility] STAFF PHYSICIAN] - (f/u in 2 weeks.) Activity:: Activity as Tolerated Remove Dressings/Wound Care:: 72 hours Shower/Bathe:: 72 hours Diet:: As Tolerated Discharge Orders Discharge Orders: Discharge Order (Routine); Ordered 05/01/19 Ordered By: Rich Lauren DS: Diagnosis Discharge Diagnosis (1) Painful orthopaedic hardware: Status: Acute
--- NOTE | 2019-05-01 16:41 | ROE_ITS ---
DATE OF PROCEDURE: May 01, 2019 PREOPERATIVE DIAGNOSIS: Painful screw, left elbow. POSTOPERATIVE DIAGNOSIS: Same. PROCEDURE: Removal of painful screw, left elbow. ANESTHESIA: General. SURGEON: Rich Lauren M.D. INDICATIONS: This is a 43-year-old white female who, over a year ago, had a debridement of osteophyt es and removal of loose bodies from the left elbow using a medial epicondyle osteotomy approach. Maximus amanda was successful, but she fell a few weeks after the surgery, displacing the osteotomy of the medi al epicondyle. I then fixated the osteotomy with a 4.0 cancellous screw with washer. The osteotomy appears to have united, or at least had a good, secure fibrous union. However the screw head is quit e prominent and gives her discomfort whenever she lays her elbow down on a table top. Since the oste otomy appears to be fairly well-healed, I thought that the screw was not necessary for fixation and c ould be excised to alleviate her pain. The risks and complications of the procedure were explained t o the patient in detail preoperatively. PROCEDURE: The patient was taken to the Operating Room on 05/01/19. The patient was placed supine on the operating table and a general anesthetic was administered. A proximal tourniquet was applied to the left upper arm and the left elbow was prepped and draped free in the usual sterile fashion. I wa s able to localize the prominent screw head by palpation and I made an incision in line with her old medial scar through the skin to the subcu. The incision was about 2.5 inches in length. I was then able to incise directly down onto the prominent screw head. By sharp dissection I exposed the screw head. I used a dental pick to remove soft tissues from the head and then the screw and washer were b acked out with a hex screwdriver. The wound was irrigated with saline solution. The wound margins w ere then infiltrated with 0.5% Marcaine with an epinephrine solution. The skin edges were approximat ed with horizontal mattress sutures of #4-0 Nylon. The tourniquet was inflated for the procedure and was now deflated; there was no significant bleeding seen. The wound was dressed with Xeroform gauze , sterile gauze 4x4's, an ABD pad and wrapped with a 4-inch Kerlix bandage. This was then over-wrapp ed with a 6-inch Abhi bandage. The patient tolerated the procedure well, her anesthesia was reversed without complications and she was discharged to the recovery room in good condition. The patient was discharged home from the Day Surgery Unit when fully recovered from her general anest hesia. She was given instructions to use her left upper extremity as much as discomfort allows. She may remove her dressings in 72 hours. She may shower and get her incision wet after 72 hours. She can leave the incision uncovered when it's dry and sealed. She can loosen her Abhi bandage if her lef t hand swells. She will take ibuprofen, 800 mg, p.o. q6h p.r.n. for pain. She should follow-up with me in two weeks for suture removal.
== END 2019-05-01 15:14 | disposition home or self-care (01) ==
LOC: SUR 15:21
PROVIDERS: PCP Internal Medicine; Visit Provider Orthopaedic Surgery
PROC: (CPT 20680; principal; 2019-05-01 11:45)
DX: T84.84XA Pain due to internal orthopedic prosthetic devices, implants and grafts, initial encounter (principal); M25.522 Pain in left elbow; I10 Essential (primary) hypertension; K21.9 Gastro-esophageal reflux disease without esophagitis
CPT/HCPCS: 20680; J0690; J1885; J2250; J2405; J3010

== ENCOUNTER → 2019-05-17 09:19 | Outpatient (BNVA) | payer MEDICARE, MEDICAID, SELFPAY | PROVIDERS: PCP Internal Medicine; Referring Provider Internal Medicine; Visit Provider Orthopaedic Surgery | DX: T84.84XA Pain due to internal orthopedic prosthetic devices, implants and grafts, initial encounter (principal); Z47.89 Encounter for other orthopedic aftercare; I10 Essential (primary) hypertension ==

== ENCOUNTER 2019-06-21 10:48 | Outpatient (CLI) | payer MEDICARE, MEDICAID, SELFPAY ==
--- NOTE | 2019-06-21 09:07 | DI.RAD_ITS ---
SYMPTOM/DIAGNOSIS: LEFT ELBOW PAIN LEFT ELBOW: Three views. Comparison 04/19/19 The orthopaedic screw has been removed from the medial epicondyle. There are well corticated osseous fragments adjacent to the medial epicondyle likely consistent with old injury. The fracture involving the coronoid process appears stable. No new fractures or dislocations are seen. There are degenerative changes seen at the radial capitellar joint.
== END 2019-06-21 11:08 ==
PROVIDERS: PCP Internal Medicine; Referring Provider Internal Medicine; Visit Provider Orthopaedic Surgery
DX: M25.522 Pain in left elbow (principal); M19.022 Primary osteoarthritis, left elbow; W19.XXXA Unspecified fall, initial encounter; T84.84XA Pain due to internal orthopedic prosthetic devices, implants and grafts, initial encounter
CPT/HCPCS: 73080

== ENCOUNTER → 2020-01-02 09:28 | Outpatient (BNVA) | payer OTHER, SELFPAY | PROVIDERS: PCP Internal Medicine; Referring Provider Internal Medicine; Visit Provider Orthopaedic Surgery | DX: M70.61 Trochanteric bursitis, right hip (principal); W00.0XXA Fall on same level due to ice and snow, initial encounter | CPT/HCPCS: 99213 ==

== ENCOUNTER 2020-06-11 11:05 | Outpatient (CLI) | payer OTHER, SELFPAY ==
--- NOTE | 2020-06-11 11:00 | DI.RAD_ITS ---
EXAM: XR SHOULDER RT COMPLETE 2+V CLINICAL HISTORY: pain TECHNIQUE: COMPARISON: No exams were available for comparison FINDINGS: Three views were obtained. No bony or soft tissue abnormality seen. IMPRESSION:
== END 2020-06-11 11:25 ==
PROVIDERS: PCP Internal Medicine; Referring Provider Internal Medicine; Visit Provider Orthopaedic Surgery
DX: M25.511 Pain in right shoulder (principal); S40.011A Contusion of right shoulder, initial encounter; Y08.89XA Assault by other specified means, initial encounter; I10 Essential (primary) hypertension
CPT/HCPCS: 99214; 73030